=== PATIENT | female | born 1990 | race Caucasian/White ===

== ENCOUNTER 2022-04-16 09:55 | Day surgery (SDC) | payer OTHER ==
[2022-04-16 10:23] VITALS: BMI 27.0
== END 2022-04-16 12:35 | disposition home or self-care (01) ==
LOC: CSHLD/OP 09:55
PROVIDERS: ATTEND Obstetrics & Gynecology
DX: O36.8130 Decreased fetal movements, third trimester, not applicable or unspecified (principal); Z3A.38 38 weeks gestation of pregnancy; Z79.899 Other long term (current) drug therapy
CPT/HCPCS: 59025; 76819; 99282

== ENCOUNTER 2022-04-18 07:34 | Outpatient (CLI) | payer OTHER ==
[2022-04-18 09:41] LABS: #Basophils 0.1 10x3/uL (0.0-0.2); #Eosinphils 0.4 10x3/uL (0.0-0.5); #Monocytes 0.6 10x3/uL (0.0-1.1); #Neutrophils 9.3 10x3/uL (1.5-8.4); %Basophils 0.5 % (0.0-2.0); %Lymphocytes 15.1 % (18.0-47.0); %Monocytes 5.1 % (0.0-10.0); %Neutrophils 75.7 % (40.0-75.0); Hemoglobin 14.3 g/dL (12.0-15.5); Mean Corpuscular HGB CONC 34.9 g/dL (32.0-36.0); Mean Corpuscular Hemoglobin 32.5 pg (27.0-33.0); Mean Corpuscular Volume 93.2 fl (81.6-98.3); Mean Platelet Volume 10.8 fl (7.4-10.4); Platelet Count 194 10x3/uL (150-450); RBC Distribution Width 12.6 % (11.5-14.5); White Blood Cell (WBC) Count 12.3 10x3/uL (3.5-10.5)
[2022-04-18 10:10] LABS: SARS-CoV-2 NAA Rapid Test Not Detected (NotDetected)
[2022-04-18 10:23] LABS: HBSAg Index 0.29 S/CO (0-0.99); Hep B Surf Ag Non-Reactive S/CO (NonReactive); Syphilis Antibody Nonreactive (Nonreactive); Syphilis Antibody Index 0.05 S/CO (<1.00 Non-Reactive)
== END 2022-04-18 07:35 | disposition home or self-care (01) ==
LOC: CSHLAB 07:34
PROVIDERS: ATTEND Obstetrics & Gynecology
DX: Z01.812 Encounter for preprocedural laboratory examination (principal); Z20.822 Contact with and (suspected) exposure to COVID-19; O34.219 Maternal care for unspecified type scar from previous cesarean delivery
CPT/HCPCS: 36415; 85025; 86780; 86900; 86901; 87340; U0002

== ENCOUNTER 2022-04-21 10:11 | Inpatient (IN) | payer OTHER ==
[2022-04-21 10:34] VITALS: BMI 27.3
[2022-04-21] MEDS ORDERED: CEFAZOLIN 2 GM in Sodium Chloride 0.9% 100 ML IVPB SCH (10:37)
[2022-04-21] MEDS ORDERED: Lactated Ringer's 1,000 ML IV SCH (10:37)
[2022-04-21] MEDS ORDERED: Famotidine/PF 20 mg/2ml Vial SLOW IVP PRN (10:37)
[2022-04-21] MEDS ORDERED: Bicitra 30 ML UDCUP PO PRN (10:37)
[2022-04-21] MEDS ORDERED: hydrALAZINE 20 MG/ML VIAL SLOW IVP PRN ×2 (10:37→14:59)
[2022-04-21] MEDS ORDERED: Promethazine HCl 25 MG/ML VIAL IM PRN ×2 (10:37→11:06)
[2022-04-21] MEDS ORDERED: Ondansetron PF 4 MG/2 ML Vial IVP PRN ×2 (10:37→11:06)
[2022-04-21] MEDS ORDERED: Meperidine HCl/PF 25 MG/ML VIAL SLOW IVP PRN (11:06)
[2022-04-21] MEDS ORDERED: Ketorolac Tromethamine 30 MG/ML VIAL IVP PRN (11:06)
[2022-04-21] MEDS ORDERED: diphenhydrAMINE 50 MG/ML VIAL IVP PRN (11:06)
[2022-04-21] MEDS ORDERED: Promethazine HCl 25 MG SUPP PR PRN (11:06)
[2022-04-21] MEDS ORDERED: Fentanyl 100 MCG/2 ML VIAL SLOW IVP PRN (11:06)
[2022-04-21] MEDS ORDERED: HYDROmorphone 2 MG/ML VIAL SLOW IVP PRN (11:06)
[2022-04-21] MEDS ORDERED: Ondansetron HCl/PF 4 MG/2 ML Vial IVP PRN (11:06)
[2022-04-21] MEDS ORDERED: Naloxone HCl 0.4 mg/ml Vial IVP PRN ×2 (11:06)
[2022-04-21] MEDS ORDERED: Naloxone HCl 0.4 mg/ml Vial IV PRN (11:06)
[2022-04-21] MEDS ORDERED: Moisturizing Cream (Eucerin) 113 GM JAR TOP PRN (11:06)
[2022-04-21] MEDS ORDERED: PHENYLEPHRINE-NS 100 MCG/ML 10 ML SYRINGE ONE (11:15)
[2022-04-21] MEDS ORDERED: Oxytocin 10 UNITS/ML VIAL ONE (11:15)
[2022-04-21] MEDS ORDERED: Ketorolac Tromethamine 30 MG/ML VIAL IVP SCH (11:15)
[2022-04-21] MEDS ORDERED: Communication Order-Pharmacy FS SCH (11:15)
[2022-04-21] MEDS ORDERED: Ketorolac Tromethamine 30 MG/ML VIAL ONE (11:16)
[2022-04-21] MEDS ORDERED: Phenylephrine 40 MG/NS 250 ML 250 ML ONE (11:16)
[2022-04-21] MEDS ORDERED: Ondansetron PF 4 MG/2 ML Vial ONE (11:16)
[2022-04-21] MEDS ORDERED: Morphine PF 10 MG/10 ML VIAL ONE (12:03)
[2022-04-21] MEDS ORDERED: ePHEDrine Sulfate 50 MG/10 ML VIAL ONE (12:37)
[2022-04-21] MEDS ORDERED: Midazolam HCl 2 mg/2 ml Vial ONE (13:15)
[2022-04-21] MEDS ORDERED: HYDROmorphone 0.5 MG/0.5 ML SYRINGE SLOW IVP PRN (14:31)
[2022-04-21] MEDS ORDERED: NS w/ Oxytocin 30 units 500 ML ONE (14:55)
[2022-04-21] MEDS ORDERED: Boostrix 0.5 ML (Tdap) VIAL (>/=7 yrs of age) IM ONE (14:59)
[2022-04-21] MEDS ORDERED: Acetaminophen 325 MG TAB PO PRN (14:59)
[2022-04-21] MEDS ORDERED: diphenhydrAMINE 25 MG CAP PO PRN (14:59)
[2022-04-21] MEDS ORDERED: Bisacodyl 10 MG SUPP PR PRN (14:59)
[2022-04-21] MEDS ORDERED: HYDROcodone/Acetaminophen 5/325 mg Tablet PO PRN (14:59)
[2022-04-21] MEDS ORDERED: Misoprostol 200 MCG TAB PR PRN (14:59)
[2022-04-21] MEDS ORDERED: Lanolin Ointment 7 GM TUBE TOP PRN (14:59)
[2022-04-21] MEDS: Docusate 100 MG CAP PO SCH (22:11)
[2022-04-21] MEDS: Ibuprofen 800 MG TAB PO SCH (22:12)
[2022-04-22] MEDS: Ibuprofen 800 MG TAB PO SCH ×3 (04:52→21:06)
[2022-04-22 05:34] LABS: Mean Corpuscular HGB CONC 34.8 g/dL (32.0-36.0); Mean Corpuscular Hemoglobin 32.5 pg (27.0-33.0); Mean Corpuscular Volume 93.5 fl (81.6-98.3); Mean Platelet Volume 10.9 fl (7.4-10.4); Platelet Count 174 10x3/uL (150-450); RBC Distribution Width 12.6 % (11.5-14.5); Red Blood Cell (RBC) Count 3.38 10x6/uL (3.90-5.03); White Blood Cell (WBC) Count 13.4 10x3/uL (3.5-10.5)
[2022-04-22] MEDS: Docusate 100 MG CAP PO SCH ×2 (09:12→21:06)
[2022-04-22] MEDS: HYDROcodone/Acetaminophen 5/325 mg Tablet PO PRN ×3 (09:14→18:18)
[2022-04-22] MEDS: Simethicone Chewable 80 MG TAB PO PRN ×2 (09:15→21:06)
[2022-04-22] MEDS ORDERED: Loratadine 10 MG TAB PO SCH (20:00)
[2022-04-23 04:40] VITALS: TEMP 97.8
[2022-04-23] MEDS: Ibuprofen 800 MG TAB PO SCH (05:49)
[2022-04-23] MEDS: HYDROcodone/Acetaminophen 5/325 mg Tablet PO PRN ×2 (06:24→11:02)
[2022-04-23 07:50] VITALS: BP 104/61
[2022-04-23] MEDS: Docusate 100 MG CAP PO SCH (08:14)
== END 2022-04-23 11:10 | disposition home or self-care (01) | DRG 788 ==
LOC: CSHLD 10:11 → CSHPP 15:40
PROVIDERS: ADMIT Obstetrics & Gynecology; ATTEND Obstetrics & Gynecology
PROC: 10D00Z1 Extraction of Products of Conception, Low, Open Approach (ICD-10-PCS; principal; 2022-04-21)
DX: O34.211 Maternal care for low transverse scar from previous cesarean delivery (principal); Z3A.39 39 weeks gestation of pregnancy; Z37.0 Single live birth
CPT/HCPCS: 36415; 51702; 85027; 86850; 86900; 86901; J0690; J1170; J1885; J2250; J2274; J2405; J2590; J3490; S0028